=== PATIENT | female | born 1935 | race Caucasian/White ===

== ENCOUNTER 2019-10-12 17:39 | Inpatient (IN) | payer OTHER ==
[~2019-10-12] VITALS: Ht 157.5 cm; Wt 68.0 kg
[2019-10-12] MEDS ORDERED: SYNTHROID50 MCG PO (18:07)
[2019-10-12] MEDS ORDERED: TENORMIN25 MG PO (18:07)
[2019-10-12] MEDS ORDERED: PREDNISOLONE1 GM (18:08)
[2019-10-12] MEDS ORDERED: ZANTAC150 M3 (18:09)
[2019-10-12] MEDS ORDERED: PROTONIX40 M1 PO (18:09)
[2019-10-12] MEDS ORDERED: MICROZIDE12.5 MG (18:10)
[2019-10-12] MEDS ORDERED: XARELTO15 MG (18:10)
[2019-10-12] MEDS ORDERED: COZAAR100 MG PO (18:10)
[2019-10-12] MEDS ORDERED: RESTORIL30 M1 PO (18:10)
== END 2019-10-14 13:21 | disposition home or self-care (01) | DRG 392 ==
LOC: ER 17:39 → SEC-K 10-13 08:13 → MEDJ 10-13 08:13
PROVIDERS: ADMIT Student in an Organized Health Care Education/Training Program
PROC: BW21Y0Z Computerized Tomography (CT Scan) of Abdomen and Pelvis using Other Contrast, Unenhanced and Enhanced (ICD-10-PCS; principal; 2019-10-13)
DX: K29.00 Acute gastritis without bleeding (principal); E87.1 Hypo-osmolality and hyponatremia; E87.6 Hypokalemia; E86.0 Dehydration; E87.8 Other disorders of electrolyte and fluid balance, not elsewhere classified; R42 Dizziness and giddiness; I10 Essential (primary) hypertension; I48.0 Paroxysmal atrial fibrillation; Z79.01 Long term (current) use of anticoagulants

== ENCOUNTER 2020-04-06 19:01 | Emergency (ER) | payer OTHER ==
[~2020-04-06] VITALS: Ht 154.9 cm; Wt 68.0 kg
[~2020-04-06 19:01] MED LIST: COZAAR100 MG PO; MICROZIDE12.5 MG; PREDNISOLONE1 GM; PROTONIX40 M1 PO; RESTORIL30 M1 PO; SYNTHROID50 MCG PO; TENORMIN25 MG PO; XARELTO15 MG; ZANTAC150 M3
[2020-04-06] MEDS ORDERED: RESTORIL30 M1 (19:19)
[2020-04-06] MEDS ORDERED: AMLODIPINE-OLM1 EAC2 (19:19)
[2020-04-06] MEDS ORDERED: COZAAR100 MG (19:19)
[2020-04-06] MEDS ORDERED: RAYOS2 MG (19:19)
[2020-04-06] MEDS ORDERED: SYNTHROID50 MCG (19:20)
[2020-04-06] MEDS ORDERED: FORTAMET500 MG (19:20)
[2020-04-06] MEDS ORDERED: PROTONIX40 MG (19:20)
[2020-04-06] MEDS ORDERED: HYDROCHLOROTH12.5 MG (19:20)
== END 2020-04-06 19:44 | disposition home or self-care (01) ==
LOC: ER 19:01
DX: R07.89 Other chest pain (principal); N64.4 Mastodynia

== ENCOUNTER 2022-05-28 22:28 | Emergency (ER) | payer OTHER ==
[~2022-05-28] VITALS: Ht 160 cm; Wt 68.0 kg
[~2022-05-28 22:28] MED LIST changes: +AMLODIPINE-OLM1 EAC2; +COZAAR100 MG; +FORTAMET500 MG; +HYDROCHLOROTH12.5 MG; +PROTONIX40 MG; +RAYOS2 MG; +RESTORIL30 M1; +SYNTHROID50 MCG
[2022-05-28] MEDS ORDERED: AMOX-CLAV 875-1 EACH PO (22:39)
[2022-05-28] MEDS ORDERED: NEURONTIN300 MG PO (22:42)
[2022-05-28] MEDS ORDERED: TRAZODONE HCL150 MG PO (22:42)
[2022-05-28] MEDS ORDERED: PLAQUENIL (22:44)
== END 2022-05-29 01:12 | disposition home or self-care (01) ==
LOC: ER 22:28
DX: K04.7 Periapical abscess without sinus (principal); E11.9 Type 2 diabetes mellitus without complications; Z79.84 Long term (current) use of oral hypoglycemic drugs; I10 Essential (primary) hypertension; E03.9 Hypothyroidism, unspecified; E78.00 Pure hypercholesterolemia, unspecified

== ENCOUNTER 2022-07-18 13:29 | Emergency (ER) | payer OTHER ==
[~2022-07-18] VITALS: Ht 157.5 cm; Wt 68.0 kg
[~2022-07-18 13:29] MED LIST changes: +AMOX-CLAV 875-1 EACH PO; +BETAPACE80 MG; +CARAFATE1 GM/10 ML PO; +LEVSIN/SL0.125 MG SL; +NEURONTIN300 MG PO; +PLAQUENIL; +TRAZODONE HCL150 MG PO
[2022-07-18] MEDS ORDERED: CARAFATE1 GM/10 ML PO (17:10)
[2022-07-18] MEDS ORDERED: PEPCID AC20 MG PO (17:10)
== END 2022-07-18 19:49 | disposition home or self-care (01) ==
LOC: ER 13:29
DX: K29.70 Gastritis, unspecified, without bleeding (principal); I10 Essential (primary) hypertension; M19.90 Unspecified osteoarthritis, unspecified site